=== PATIENT | male | born 1960 ===

== ENCOUNTER 2018-01-21 06:04 | Emergency (ER) | payer MEDICAID ==
[2018-01-21] MEDS ORDERED: Sodium Chloride 0.9% 1,000 ML IV SCH (06:30)
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
[2018-01-21] MEDS ORDERED: Iohexol 350 MG/100 ML VIAL ONE (06:58)
[2018-01-21 07:00] LABS: BASO # 0.04 K/mm3 (0.0-2.0); BASO % 0.3 % (0.0-3.0); EOS # 0.3 (0.0-0.7); EOS % 2.3 % (1.5-5.0); GRAN # 10.68 (1.4-6.5); GRAN % 78.4 % (50.0-68.0); HEMOGLOBIN 14.3 g/dL (14.0-18.0); LYMPH # 1.8 (1.2-3.4); LYMPH % 12.8 % (22.0-35.0); MEAN CELL VOLUME 86.3 fl (80.0-105.0); MEAN CORPUSCULAR HEMOGLOBIN 29.7 pg (25.0-35.0); MEAN CORPUSCULAR HGB CONC 34.5 g/dl (31.0-37.0); MEAN PLATELET VOLUME 10.3 fl (7.0-11.0); MONO # 0.9 (0.1-0.6); MONO % 6.2 % (1.0-6.0); RBC 4.81 10^6/uL (3.5-6.1); RED CELL DISTRIBUTION WIDTH 12.7 % (11.5-14.5); WHITE BLOOD COUNT 13.6 10^3/ul (4.5-11.0)
--- NOTE | 2018-01-21 07:08 | ED PDOC ---
Physical Exam Vital Signs Temp Pulse Resp BP Pulse Ox 01/21/18 10:24 98.1 F 89 18 97 01/21/18 09:02 88 18 138/92 H 100 01/21/18 06:15 98.8 F 86 17 157/97 H 100 Medical Decision Making ED Course and Treatment: 01/21/18 07:05 Case endorsed to me by Dr. Navneet Gray. Pending labs, Chest X-ray, CT Abd & Pelvis , and reassess/disposition. 01/21/18 08:19 On reexamination, family is translating at bed side. Patient states pain has completely resolved. Patient describes he had a sudden onset of left flank pain that radiated to the left abdomen associated with nausea. Pain has resolved spontaneously. On exam, patient has no chest pain or abdominal pain currently. CT abdomen pending. PROCEDURE: CHEST RADIOGRAPH, 1 VIEW Dictator : Timo Huizar MD Report Date : 01/21/2018 10:05:02 IMPRESSION: No active disease. PROCEDURE: CT Abdomen and Pelvis without intravenous contrast Dictator : Linnette Ramirez MD Report Date : 01/21/2018 10:00:42 IMPRESSION: Mild left obstructive uropathy resulting from a 3 mm stone in the mid ureter at the level of L3. Constipation and fecalization of small bowel contents consistent with chronic stasis. No bowel obstruction. 01/21/18 10:17 With games manager, reviewed results with patient. Patient continues to have no pain. Patient will be discharged with Bactrim, Flomax, and pain medication and instructed to follow up with urologist or return if symptoms worsen or new concerning symptoms arise. No fever noted. No abdominal pain noted. No nausea. No headaches or dizziness. Will refer to oncall urologist. Patient wishes to go home stating he has had no pain for several hours. 01/21/18 14:40 - Lab Interpretations Lab Results: 01/21/18 07:00 01/21/18 06:20 Lab Results 01/21/18 07:30: Urine Color Yellow, Urine Appearance Clear, Urine pH 5.5, Ur Specific [place] >= 1.030, Urine Protein 30 H, Urine Glucose (UA) Negative, Urine Ketones Negative, Urine Blood Large H, Urine Nitrate Negative, Urine Bilirubin Negative, Urine Urobilinogen 0.2, Ur Leukocyte Esterase Negative, Urine RBC 20 - 25, Urine WBC 1 - 3, Ur Epithelial Cells None, Calcium Oxalate Crystal Few, Amorphous Sediment Few, Urine Bacteria Many, Urine Other Uyeast 01/21/18 07:00: WBC 13.6 H, RBC 4.81, Hgb 14.3, Hct 41.5 L, MCV 86.3, MCH 29.7, MCHC 34.5, RDW 12.7, Plt Count 218, MPV 10.3, Gran % 78.4 H, Lymph % (Auto) 12.8 L, [place] % (Auto) 6.2 H, Eos % (Auto) 2.3, Baso % (Auto) 0.3, Gran # 10.68 H , Lymph # (Auto) 1.8, [place] # (Auto) 0.9 H, Eos # (Auto) 0.3, Baso # (Auto) 0.04 01/21/18 06:20: Sodium 145, Potassium 4.6, Chloride 105, Carbon Dioxide 25, Anion Gap 20, BUN 19, Creatinine 1.1, Est GFR ( Amer) > 60, Est GFR (Non- Af Amer) > 60, Random Glucose 162 H, Calcium 9.6, Total Bilirubin 0.3, AST 25, ALT 39, Alkaline Phosphatase 81, Troponin I < 0.01, Total Protein 7.4, Albumin 4.5, Globulin 2.9, Albumin/Globulin Ratio 1.6, Lipase 59 I have reviewed the lab results: Yes - RAD Interpretation Radiology Orders: 01/21/18 07:05 CHEST ONE VIEW [RAD] Stat 01/21/18 08:17 ABD & PELVIS W/O PO OR IV CONT [CT] Stat - Medication Orders Current Medication Orders: Discontinued Medications Sodium Chloride (Sodium Chloride 0.9%) 1,000 mls @ 100 mls/hr IV .Q10H EDWARD Last Admin: 01/21/18 07:00 Dose: 100 mls/hr eMAR Start Stop Document 01/21/18 07:00 SS (Rec: 01/21/18 07:00 SS [id number]) Intravenous Solution Start Date 01/21/18 Start Time 07:00 Ondansetron HCl (Zofran Inj) 4 mg IVP STAT STA Stop: 01/21/18 06:32 Last Admin: 01/21/18 07:00 Dose: 4 mg IVP Administration Document 01/21/18 07:00 SS (Rec: 01/21/18 07:00 [id number]) Charges for Administration # of IVP Administrations 1 - Scribe Statement The provider has reviewed the documentation as recorded by the Mariselaibivana Ayala Provider Scribe Attestation: All medical record entries made by the Scribe were at my direction and personally dictated by me. I have reviewed the chart and agree that the record accurately reflects my personal performance of the history, physical exam, medical decision making, and the department course for this patient. I have also personally directed, reviewed, and agree with the discharge instructions and disposition. Disposition/Present on Arrival - Present on Arrival Any Indicators Present on Arrival: No History of DVT/PE: No History of Uncontrolled Diabetes: No Urinary Catheter: No History of Decub. Ulcer: No History Surgical Site Infection Following: None - Disposition Have Diagnosis and Disposition been Completed?: Yes Diagnosis: Renal colic on left side, Kidney stone Disposition: HOME/ ROUTINE Disposition Time: 10:20 Patient Plan: Discharge Condition: GOOD Discharge Instructions (ExitCare): Kidney Stones (DC), Flank Pain (DC) Additional Instructions: For any return of pain, any fever, any difficulty urinating, any bloody urine, any abdominal pain, any vomiting, any chills, any chest pain or shortness of breath, any numbness or weakness, any return or persistence or worsening of any symptoms, get rechecked. Please follow-up with a urologist as discussed. Prescriptions: Sulfamethoxazole/Trimethoprim [Bactrim DS 800 mg-160 mg] 1 tab PO BID #14 tab Tamsulosin [Flomax] 0.4 mg PO DAILY #5 cap Ibuprofen [Motrin Tab] 400 mg PO Q8 PRN #12 tab PRN Reason: Pain, Mild (1-3) Referrals: Nicole Anderson MD [Primary Care Provider] - Follow up with primary Khloe Arroyo MD [Staff Provider] - Follow up with primary Forms: [employer] (Azeri), WORK NOTE
[2018-01-21 07:42] LABS: PH,URINE 5.5 (4.7-8.0); URINE BILIRUBIN NEGATIVE (NEGATIVE); URINE BLOOD LARGE (NEGATIVE); URINE GLUCOSE (UA) NEGATIVE (NEGATIVE); URINE LEUKOCYTE ESTERASE NEGATIVE Leu/uL (NEGATIVE); URINE PROTEIN 30 mg/dL (<30 mg/dL); URINE UROBILINOGEN 0.2 E.U./dL (<1 E.U./dL)
[2018-01-21 08:02] LABS: URINE APPEARANCE CLEAR (CLEAR); URINE COLOR YELLOW (YELLOW)
[2018-01-21 08:05] LABS: URINE BACTERIA MANY (NEG); URINE CALCIUM OXALATE CRYSTALS FEW /hpf; URINE RBC 20 - 25 /hpf (0-2)
[2018-01-21 08:10] LABS: URINE AMORPHOUS SEDIMENT FEW
[2018-01-21 08:27] LABS: ALB/GLOB RATIO 1.6 (1.1-1.8); ALBUMIN 4.5 g/dL (3.0-4.8); ALT/SGPT 39 U/L (7-56); AST/SGOT 25 U/L (17-59); BLOOD UREA NITROGEN 19 mg/dL (7-21); CALCIUM 9.6 mg/dL (8.4-10.5); GFR NON-AFRICAN AMERICAN > 60; LIPASE 59 U/L (23-300)
[2018-01-21 08:38] LABS: TROPONIN I < 0.01 ng/mL
[2018-01-21 09:02] VITALS: BP 138/92; RESP 18
--- NOTE | 2018-01-21 10:02 | CT ---
Date of service: 01/21/2018 PROCEDURE: CT Abdomen and Pelvis without intravenous contrast HISTORY: Left flank pain COMPARISON: None. TECHNIQUE: CT scan of the abdomen and pelvis was performed without administration of intravenous contrast. Oral contrast was not administered. Coronal and sagittal reformatted images were obtained. . Radiation dose: Total exam DLP = 571.36 mGy-cm. This CT exam was performed using one or more of the following dose reduction techniques: Automated exposure control, adjustment of the mA and/or kV according to patient size, and/or use of iterative reconstruction technique. FINDINGS: LOWER THORAX: The visualized lungs are clear. LIVER: Normal in size. No intrahepatic ductal dilatation. GALLBLADDER AND BILE DUCTS: No calcified gallstones. No biliary dilatation. PANCREAS: Normal in size. No ductal dilatation. SPLEEN: Normal in size. ADRENALS: Normal in size. No discrete nodule. KIDNEYS AND URETERS: The right kidney is normal in size without nephrolithiasis or hydronephrosis. There is nonspecific perinephric fat stranding. There is mild left obstructive uropathy from 3 mm stone in the mid ureter at the level of L3 with proximal hydroureteronephrosis, edema and enlargement of the left kidney and significant perinephric fat stranding. VASCULATURE: No aortic aneurysm. BOWEL: The small bowel loops are normal in caliber. There is large amount of stool in the colon and fecalization of small bowel contents consistent with chronic stasis. No bowel dilatation or obstruction APPENDIX: Normal appendix. PERITONEUM: No free fluid. No free air. LYMPH NODES: No enlarged lymph nodes. BLADDER: Well distended and grossly normal in appearance. REPRODUCTIVE: The prostate gland is normal in size BONES: No acute fracture. OTHER FINDINGS: None. IMPRESSION: Mild left obstructive uropathy resulting from a 3 mm stone in the mid ureter at the level of L3. Constipation and fecalization of small bowel contents consistent with chronic stasis. No bowel obstruction.
--- NOTE | 2018-01-21 10:06 | RAD ---
Date of service: 01/21/2018 PROCEDURE: CHEST RADIOGRAPH, 1 VIEW HISTORY: back pain COMPARISON: None available. FINDINGS: LUNGS: Clear. PLEURA: No pneumothorax or pleural fluid seen. CARDIOVASCULAR: Normal. OSSEOUS STRUCTURES: No significant abnormalities. VISUALIZED UPPER ABDOMEN: Normal. OTHER FINDINGS: None. IMPRESSION: No active disease.
[2018-01-21 10:25] VITALS: PULSE 89; TEMP 98.1; O2SAT 97
--- NOTE | 2018-01-21 17:51 | CARD ---
APPROVED REPORT Date of service: 01/21/2018 EKG Measurement Heart [id number] <Conclusion> Normal sinus rhythm Minimal voltage criteria for LVH, may be normal variant Borderline ECG
== END 2018-01-21 10:27 | disposition home or self-care (01) ==
LOC: ED 06:04
DX: N20.0 Calculus of kidney (principal); E78.5 Hyperlipidemia, unspecified
CPT/HCPCS: 71045; 74176; 80053; 81001; 83690; 84484; 85025; 93005; 96374; 99283; J2405; J7030